=== PATIENT | male | born 1990 | race African-American/Black ===

== ENCOUNTER 2020-09-05 12:30 | Emergency (ER) | payer SELFPAY ==
[~2020-09-05] VITALS: Ht 167.6 cm; Wt 54.4 kg
[2020-09-05 13:32] LABS: BASO % 0.2 % (0.0-1.0); EOS # 0.1 10*3/uL (0.0-0.4); HEMATOCRIT 35.1 % (42.0-52.0); LYMPH # 1.4 10*3/uL (1.3-4.4); LYMPH % 11.2 % (27.0-41.0); MEAN CELL VOLUME 83.4 fl (80.0-94.0); MEAN CORPUSCULAR HGB 30.4 pg (27.0-31.0); MEAN CORPUSCULAR HGB CONC 36.5 g/dl (33.0-37.0); MEAN PLATELET VOLUME 9.7 fl (9.6-12.3); MONO # 1.2 10*3/uL (0.1-1.0); MONO % 9.8 % (3.0-9.0); NEUT # 9.5 10*3/uL (2.3-7.9); NEUT % 77.5 % (47.0-73.0); PLATELET COUNT AUTOMATED 218 10*3/uL (130-400); RED BLOOD COUNT 4.21 10*6/uL (4.50-5.90); RED CELL DISTRI WIDTH 13.8 % (0-14.5); WHITE BLOOD COUNT 12.3 10*3/uL (4.8-10.8)
[2020-09-05 14:02] LABS: ALBUMIN 3.6 gm/dl (3.1-4.5); ALKALINE PHOSPHATASE 79 U/L (45-117); BUN 5 mg/dl (7-24); CHLORIDE 103 mmol/L (98-107); POTASSIUM 3.1 mmol/L (3.5-5.1); SGOT/AST 15 IU/L (3-35); SGPT/ALT 16 U/L (12-78); SODIUM 137 mmol/L (136-145); TOTAL PROTEIN 7.5 gm/dL (6.4-8.2)
[2020-09-05] MEDS ORDERED: Motrin,Rufen800 MG PO (15:59)
[2020-09-05] MEDS ORDERED: CLINDAMYCIN HC300 MG PO (15:59)
== END 2020-09-05 16:27 | disposition home or self-care (01) ==
LOC: ED 12:30
PROVIDERS: Physician Assistant
DX: K04.7 Periapical abscess without sinus (principal)

== ENCOUNTER 2020-09-07 14:01 | Emergency (ER) | payer SELFPAY ==
[~2020-09-07] VITALS: Ht 165.1 cm; Wt 54.4 kg
[~2020-09-07 14:01] MED LIST: CLINDAMYCIN HC300 MG PO; Motrin,Rufen800 MG PO
[2020-09-07 16:45] LABS: BASO # 0.1 10*3/uL (0.0-0.1); BASO % 0.4 % (0.0-1.0); EOS # 0.6 10*3/uL (0.0-0.4); HEMATOCRIT 35.7 % (42.0-52.0); LYMPH % 7.5 % (27.0-41.0); MEAN CORPUSCULAR HGB 30.2 pg (27.0-31.0); MEAN CORPUSCULAR HGB CONC 36.4 g/dl (33.0-37.0); MEAN PLATELET VOLUME 9.6 fl (9.6-12.3); MONO # 1.1 10*3/uL (0.1-1.0); MONO % 7.8 % (3.0-9.0); NEUT % 79.9 % (47.0-73.0); PLATELET COUNT AUTOMATED 272 10*3/uL (130-400); RED CELL DISTRI WIDTH 13.9 % (0-14.5); WHITE BLOOD COUNT 13.8 10*3/uL (4.8-10.8)
[2020-09-07 17:01] LABS: ALBUMIN 3.5 gm/dl (3.1-4.5); ALKALINE PHOSPHATASE 72 U/L (45-117); BUN 9 mg/dl (7-24); CHLORIDE 108 mmol/L (98-107); CREATININE 0.59 mg/dL (0.70-1.30); SGOT/AST 14 IU/L (3-35); SGPT/ALT 17 U/L (12-78); SODIUM 140 mmol/L (136-145); TOTAL PROTEIN 7.5 gm/dL (6.4-8.2)
== END 2020-09-07 20:54 | disposition home or self-care (01) ==
LOC: ED 14:01
PROVIDERS: Nurse Practitioner
DX: A41.9 Sepsis, unspecified organism (principal); K04.7 Periapical abscess without sinus; K12.2 Cellulitis and abscess of mouth; Z79.2 Long term (current) use of antibiotics; Z79.899 Other long term (current) drug therapy

== ENCOUNTER 2023-11-28 09:03 | Emergency (ER) | payer SELFPAY ==
[~2023-11-28] VITALS: Ht 167.6 cm; Wt 56.7 kg
[2023-11-28] MEDS ORDERED: AMOX-CLAV 875-1 EACH PO (09:29)
== END 2023-11-28 09:42 | disposition home or self-care (01) ==
LOC: ED 09:03
DX: K04.7 Periapical abscess without sinus (principal); K02.9 Dental caries, unspecified; Z87.891 Personal history of nicotine dependence

== ENCOUNTER 2024-03-29 09:09 | Emergency (ER) | payer SELFPAY ==
[~2024-03-29] VITALS: Wt 56.7 kg
[~2024-03-29 09:09] MED LIST changes: +AMOX-CLAV 875-1 EACH PO
[2024-03-29] MEDS ORDERED: Acetaminophen/Oxycodone 5 MG/325 MG TABLET PO ONE (09:40)
[2024-03-29] MEDS ORDERED: Amoxicillin/Clavulanate Pota 875 MG TAB PO ONE (09:40)
[2024-03-29] MEDS ORDERED: AMOX-CLAV 875-1 EACH PO (09:44)
== END 2024-03-29 09:52 | disposition home or self-care (01) ==
LOC: ED 09:09
DX: K02.9 Dental caries, unspecified (principal); F17.210 Nicotine dependence, cigarettes, uncomplicated

== ENCOUNTER 2024-05-21 20:54 | Emergency (ER) | payer SELFPAY ==
[~2024-05-21] VITALS: Wt 56.7 kg
[2024-05-21] MEDS ORDERED: Ondansetron Hydrochloride 4 MG TAB SL ONE (21:20)
[2024-05-21] MEDS ORDERED: PENICILLIN V POTASSIUM 500 MG TAB PO ONE (21:20)
[2024-05-21] MEDS ORDERED: Acetaminophen/Hydrocodone 5 MG/325 MG TABLET PO ONE (21:20)
[2024-05-21] MEDS ORDERED: PENICILLIN VK500 MG PO (21:23)
== END 2024-05-21 21:31 | disposition home or self-care (01) ==
LOC: ED 20:54
DX: K04.7 Periapical abscess without sinus (principal); K02.9 Dental caries, unspecified; R22.0 Localized swelling, mass and lump, head; Z98.890 Other specified postprocedural states